=== PATIENT | male | born 1940 | race Caucasian/White ===

== ENCOUNTER 2019-01-03 12:59 | Emergency (ER) | payer MEDICARE, OTHER ==
[2019-01-03] MEDS ORDERED: TRAMADOL HCL 50 MG TABLET PO ONE (13:55)
[2019-01-03] MEDS ORDERED: DIPH/PERTUSS(ACELL)/TETANUS VAC/PF 0.5 ML SYR (>=10YO) IM ONE (13:55)
--- NOTE | 2019-01-03 13:56 | ER Document Report ---
ED Medical Screen (RME) - General Chief Complaint: Toe Injury Stated Complaint: FOOT INJURY Time Seen by Provider: 01/03/19 13:49 Primary Care Provider: ALEXI GUERRIER MD [Primary Care Provider] - Follow up as needed Mode of Arrival: Wheelchair Notes: Patient states he was walking and got his left great toe caught on the bath mat. Patient with laceration at the base of the nail with bleeding and deformity of the toe. I have greeted and performed a rapid initial assessment of this patient. A comprehensive ED assessment and evaluation of the patient, analysis of test results and completion of the medical decision making process will be conducted by additional ED providers. TRAVEL OUTSIDE OF THE [place] IN LAST 30 DAYS: No - Related Data Allergies/Adverse Reactions: brimonidine tartrate [From Alphagan P] Allergy (Unknown, Verified 10/20/14 13:24) acetaminophen [From Percocet] Allergy (Verified 05/10/13 18:49) ciprofloxacin [From Cipro] Allergy (Verified 05/10/13 18:49) levofloxacin [From Levaquin] Allergy (Verified 05/10/13 18:49) oxycodone HCl [From Percocet] Allergy (Verified 05/10/13 18:49) Past Medical History - Past Medical History Cardiac Medical History: Reports: Hx Hypercholesterolemia, Hx Hypertension Denies: Hx Heart Attack Pulmonary Medical History: Denies: Hx Asthma Neurological Medical History: Denies: Hx Cerebrovascular Accident, Hx Seizures Malignancy Medical History: Reports Hx Prostate Cancer GI Medical History: Reports: Hx Gastroesophageal Reflux Disease. Denies: Hx Hepatitis, Hx Hiatal Hernia, Hx Ulcer Infectious Medical History: Denies: Hx Hepatitis Past Surgical History: Reports: Hx Orthopedic Surgery. Denies: Hx Open Heart Surgery, Hx Pacemaker - Immunizations Hx Diphtheria, Pertussis, Tetanus Vaccination: Yes Physical Exam - Vital signs Vitals: Temp Pulse Resp BP Pulse Ox 97.9 F 70 16 133/57 H 97 01/03/19 13:36 01/03/19 13:36 01/03/19 13:36 01/03/19 13:36 01/03/19 13:36 - Extremities General lower extremity: Tender - Left great toe tenderness with deformity Course - Vital Signs Vital signs: Temp Pulse Resp BP Pulse Ox 97.9 F 70 16 133/57 H 97 01/03/19 13:36 01/03/19 13:36 01/03/19 13:36 01/03/19 13:36 01/03/19 13:36 Doctor's Discharge - Discharge Referrals: ALEXI GUERRIER MD [Primary Care Provider] - Follow up as needed
--- NOTE | 2019-01-03 14:42 | RADIOLOGY REPORT (SQ) ---
EXAM DESCRIPTION: TOE LEFT COMPLETED DATE/TIME: 01/03/2019 2:19 pm REASON FOR STUDY: L toe injury COMPARISON: None. NUMBER OF VIEWS: Three views. TECHNIQUE: AP, lateral, and oblique images acquired of the left first toe. LIMITATIONS: None. FINDINGS: MINERALIZATION: Normal. BONES: There is a transverse slightly comminuted fracture of the base of the 1st distal phalanx. JOINTS: No effusions. SOFT TISSUES: No soft tissue swelling. No foreign body. OTHER: No other significant finding. IMPRESSION: Fracture of the 1st distal phalanx. COMMENT: SITE OF TRAUMA/COMPLAINT MARKED/STAMP COMPLETED: Yes TECHNICAL DOCUMENTATION: JOB ID: [id number] [facility]- All Rights Reserved Reading location - IP/workstation name: [email or web address]
[2019-01-03] MEDS ORDERED: LIDOCAINE 1% INJ-PF (10 MG/ML) 30 ML SDV INJ ONE (15:45)
[2019-01-03] MEDS ORDERED: HYDROCODONE/ACETAMINOPHEN 5-325 MG TABLET PO ONE (15:48)
[2019-01-03] MEDS ORDERED: LIDOCAINE 1% INJ-PF (10 MG/ML) 30 ML SDV INFIL ONE (16:52)
[2019-01-03] MEDS ORDERED: CEFTRIAXONE INJ 1000 MG VIAL IM ONE (16:52)
[2019-01-03 16:57] VITALS: BP 147/63
--- NOTE | 2019-01-03 17:06 | ER Document Report ---
ED Extremity Problem, Lower - General Chief Complaint: Toe Injury Stated Complaint: FOOT INJURY Time Seen by Provider: 01/03/19 13:49 Primary Care Provider: ALEXI GUERRIER MD [Primary Care Provider] - Follow up as needed Mode of Arrival: Wheelchair Information source: Patient, Relative Notes: Patient is a 78-year-old male who comes emergency room today complaining of left toe pain and bleeding. Patient states he was in the bathroom barefoot when he went to turn he hooked his left great toe in carpet and accidentally twisted the toe outward and caused it to become a deformity. We attempted to put a shoe back on the toes seem to go back and is somewhat normal location. He noted that the bottom part of his nail had also come out. He was having extensive bleeding from that area grab some tissue paper and saturated it within a few moments. Patient denies any other injury he denies any fall. Patient denies being on any type of blood thinners as well. He does state that the toe itself is not able to move in an upward direction which is new to him but it has always had a slight deformity and that it always had a slight profile that was abnormal. TRAVEL OUTSIDE OF THE [place] IN LAST 30 DAYS: No - HPI Patient complains to provider of: Injury, Pain, Swelling Location: Great Toe Occurred: Just prior to arrival Where: Home Onset/Duration: Sudden Quality of pain: Sharp, Stabbing, Throbbing Pain Level: 4 Context: Laceration, Other - Nail avulsion of the right great toe Exacerbated by: Movement, Walking - Related Data Allergies/Adverse Reactions: brimonidine tartrate [From Alphagan P] Allergy (Unknown, Verified 10/20/14 13:24) acetaminophen [From Percocet] Allergy (Verified 05/10/13 18:49) ciprofloxacin [From Cipro] Allergy (Verified 05/10/13 18:49) levofloxacin [From Levaquin] Allergy (Verified 05/10/13 18:49) oxycodone HCl [From Percocet] Allergy (Verified 05/10/13 18:49) Past Medical History - General Information source: Patient - Social History Smoking Status: Never Smoker Cigarette use (# per day): No Chew tobacco use (# tins/day): No Smoking Education Provided: No Frequency of alcohol use: None Drug Abuse: None Lives with: Family Family History: Reviewed & Not Pertinent Patient has suicidal ideation: No Patient has homicidal ideation: No - Past Medical History Cardiac Medical History: Reports: Hx Hypercholesterolemia, Hx Hypertension Denies: Hx Heart Attack Pulmonary Medical History: Denies: Hx Asthma Neurological Medical History: Denies: Hx Cerebrovascular Accident, Hx Seizures Renal/ Medical History: Denies: Hx Peritoneal Dialysis Malignancy Medical History: Reports Hx Prostate Cancer GI Medical History: Reports: Hx Gastroesophageal Reflux Disease. Denies: Hx Hepatitis, Hx Hiatal Hernia, Hx Ulcer Infectious Medical History: Denies: Hx Hepatitis Past Surgical History: Reports: Hx Orthopedic Surgery. Denies: Hx Open Heart Surgery, Hx Pacemaker - Immunizations Hx Diphtheria, Pertussis, Tetanus Vaccination: Yes Review of Systems - Review of Systems Constitutional: No symptoms reported EENT: No symptoms reported Cardiovascular: No symptoms reported Respiratory: No symptoms reported Gastrointestinal: No symptoms reported Genitourinary: No symptoms reported Male Genitourinary: No symptoms reported Musculoskeletal: No symptoms reported, Joint pain, Joint swelling Skin: Other - Avulsion laceration Hematologic/Lymphatic: No symptoms reported Neurological/Psychological: No symptoms reported -: Yes All other systems reviewed and negative Physical Exam - Vital signs Vitals: Temp Pulse Resp BP Pulse Ox 97.9 F 70 16 133/57 H 97 01/03/19 13:36 01/03/19 13:36 01/03/19 13:36 01/03/19 13:36 01/03/19 13:36 Interpretation: Hypertensive - Notes Notes: PHYSICAL EXAMINATION: GENERAL: However he does appear somewhat uncomfortable. Patient is well- nourished well-developed 78-year-old male who is in no apparent distress on physical exam today HEAD: Atraumatic, normocephalic. NECK: Normal range of motion, supple without lymphadenopathy LUNGS: Breath sounds clear to auscultation bilaterally and equal. No wheezes rales or rhonchi. HEART: Regular rate and rhythm without murmur Musculoskeletal: Examination of patient's area of concern is his left great toe. On first examination seen patient on the table is that patient's foot has a wet dressing on it is oozing blood around the outside. He is going through multiple areas of cotton and ie 4 x 4's. He also noticed that with patient sitting there the great toe hangs below the level of the second toe. This is not not a congenital problem patient states this is an area that is concerning him is unable to lift his toe up to its normal position. He tries and attempts to but it does not move. He can curl his toes without a problem. He currently still has good cap refill in the distal end of the nailbed of the left great toe as well as the other surrounding it. Further examination shows a small laceration to the medial portion of the nail and the tissue surrounding the nail. This is in the medial aspect of the lower bottom portion of the nail. He also has an area on the lateral side of the great toe there is a slightly longer. Patient is unable to use his extensor tendon to lift his toe up. No matter how hard he tries of told just not raised. I do believe there is a tendon involvement in this whether it is a total rupture or just a partial tear patient is unable to do any kind of movement as far as upward direction now curling downward patient has no problems whatsoever NEUROLOGICAL:Normal speech, normal gait. Normal sensory, motor exams PSYCH: Normal mood, normal affect. SKIN: Warm, Dry, normal turgor, no rashes or lesions noted. Course - Re-evaluation Re-evalutation: 01/03/19 17:11 Patient is been instructed to follow-up with his orthopedic that he has had a as soon as possible and I have informed him that 10 is only a short amount time to be fixed if not he will be living with that the rest of his life. Patient voiced understanding of this. - Vital Signs Vital signs: Temp Pulse Resp BP Pulse Ox 97.5 F 61 16 147/63 H 95 01/03/19 16:50 01/03/19 16:50 01/03/19 16:50 01/03/19 16:50 01/03/19 16:50 Procedures - Immobilization Left Volar Great toe Pre-Proc Neuro Vasc Exam: Normal Immobilizer type: Other - Hiram tape left great toe and second toe Performed by: Provider Post-Proc Neuro Vasc Exam: Normal Alignment checked and good: Yes - Laceration/Wound Repair Left Distal Toe Great toe Time completed: 17:13 Wound length (cm): 1 Wound's Depth, Shape: Into muscle, Linear Laceration pre-procedure: Sterile PPE donned, Betadine prep applied Anesthetic type: 1% Lidocaine Volume Anesthetic (mLs): 8 - ml Wound explored: Clean Irrigated w/ Saline (mLs): 500 Wound Debrided: Moderate Wound Repaired With: Sutures Suture Size/Type: 4:0 Number of Sutures: 4 Layer Closure?: No Post-procedure NV exam normal: Yes Complications: No Notes: 01/03/19 17:15 Patient's toe after manipulation the nail popped back in underneath the cuticle area and the skin very well. Used 2 sutures to anchor it in and patient felt very happy with the look of the toe. Discharge - Discharge Clinical Impression: Avulsion of toenail of left foot, Extensor tendon disruption Laceration of great toe Qualifiers: Encounter type: initial encounter Damage to nail status: with damage Foreign body presence: without foreign body Laterality: left Qualified Code(s): S91.212A - Laceration without foreign body of left great toe with damage to nail, initial encounter Condition: Good Disposition: HOME, SELF-CARE Instructions: Antibiotic Ointment Protection ([facility]), Oral Narcotic Medication ([facility]), Soap Cleansing ([facility]), Tetanus Immunization Given ([facility]), Fractured Toe ([facility]), Tendon Laceration ([facility]) Additional Instructions: Home and used the best method of ambulation you can find either crutches or walker. Leave the walking boot on when you are any time up and move around for the next week and a half. You may change dressings daily and when wet or dirty. Should you have any concerns or problems return to ER for recheck. Also take all of the antibiotics. As we also discussed you need to see an orthopedic surgeon or his patient financial representative sometime in the next 24 to preferably 72 hours in order to fix the extensor tendon if it needs it. Until Monday or Monday at the longest. Prescriptions: Cephalexin Monohydrate [Keflex 500 mg Capsule] 500 mg PO Q6H 10 Days #40 capsule Hydrocodone/Acetaminophen [[place] 7.5-325 mg Tablet] 1 tab PO Q6 PRN #15 tab PRN Reason: Forms: Elevated Blood Pressure, Parent Work Note Referrals: ALEXI GUERRIER MD [Primary Care Provider] - Follow up as needed
== END 2019-01-03 17:34 | disposition home or self-care (01) ==
LOC: ER 12:59
PROC: 0HQNXZZ Repair Left Foot Skin, External Approach (ICD-10-PCS; principal; 2019-01-03)
DX: S91.212A Laceration without foreign body of left great toe with damage to nail, initial encounter (principal); S91.202A Unspecified open wound of left great toe with damage to nail, initial encounter; M79.675 Pain in left toe(s); X50.1XXA Overexertion from prolonged static or awkward postures, initial encounter; I10 Essential (primary) hypertension
CPT/HCPCS: 99283; 90471; 73660; 90715; 12001; J3490; J0696; A9270 ×2